=== PATIENT | male | born 1950 | race Caucasian/White ===

== ENCOUNTER 2017-05-04 08:05 | Day surgery (SDC) | payer OTHER ==
[~2017-05-04] VITALS: Ht 172.7 cm; Wt 95.7 kg
[2017-05-04 08:41] VITALS: Ht 172.7 cm; Wt 95.7 kg
[2017-05-04] MEDS ORDERED: LIDOCAINE 2% (SDV) 5 ML INJ ONE (09:18)
[2017-05-04] MEDS ORDERED: PROPOFOL 40 ML ONE (09:18)
[2017-05-04 09:20] VITALS: BP 120/66; PULSE 70; RESP 20
[2017-05-04] MEDS ORDERED: VITAMINS DAILY (09:54)
--- NOTE | 2017-05-04 09:55 | OPPN ---
Date/Time of Note Date/Time of Note DATE: 05/04/17 TIME: 09:54 Operative Report Preoperative Diagnosis Screening Postoperative Diagnosis Internal hemorrhoids No colon neoplasm is identified Operation/Procedure Performed Colonoscopy Surgeon see signature line clinical trials assistant None Anesthesia: MAC Estimated blood loss: none Transfusion Required none Specimen None Grafts/Implants none Complications none PATRICIA ULLOA MD May 04, 2017 09:55
[2017-05-04 10:15] VITALS: BP 137/88; RESP 14
--- NOTE | 2017-05-04 12:05 | GILP ---
DATE OF PROCEDURE: NAME OF PROCEDURE: Colonoscopy. SURGEON: Patricia Crook MD PREOPERATIVE DIAGNOSIS: Screening colonoscopy. POSTOPERATIVE DIAGNOSES 1. Colonoscopy all the way to the cecum. 2. Internal hemorrhoids. 3. No colon neoplasm was identified. INDICATION FOR THE PROCEDURE: Mr. Robert Amaro is a 66-year-old male patient who was scheduled f or screening colonoscopy. The procedure and possible complications are well explained to the patient. He understood and conse nted to the procedure. DESCRIPTION OF PROCEDURE: Under the influence of anesthesia, the colonoscope was carefully introduc ed in the rectum and under direct vision, it was advanced all the way to the cecum. FINDINGS: The patient had internal hemorrhoids. No colon neoplasm was identified. He tolerated the procedure very well and there was no complication from the procedure. At the end o f the procedure, he was awake with stable vital signs and he was discharged home to the care of his family. IMPRESSION: 1. Colonoscopy all the way to the cecum. 2. Internal hemorrhoids. 3. No colon neoplasm was identified. PLAN: Next screening colonoscopy in 10 years. Dictated By: PATRICIA KENNY/NANCY Conf#: [id number] DID#: [id number]
== END 2017-05-04 14:18 | disposition home or self-care (01) ==
LOC: GIL 08:05
PROVIDERS: ATTEND Internal Medicine Gastroenterology
DX: Z12.11 Encounter for screening for malignant neoplasm of colon (principal); K64.8 Other hemorrhoids
CPT/HCPCS: 45378; Z7610